=== PATIENT | male | born 1980 | race Caucasian/White ===

== ENCOUNTER 2019-08-10 05:37 | Emergency (ER) | payer OTHER, SELFPAY ==
[2019-08-10 05:38] VITALS: BP 119/67; PULSE 96; RESP 16; TEMP 36.5; O2SAT 96; BMI 29.3
--- NOTE | 2019-08-10 05:59 | CT_ITS ---
STUDY: CT ABDOMEN AND PELVIS WITHOUT CONTRAST REASON FOR EXAM: Male, 38 years old. RIGHT FLANK PAIN. SHOVELED GRAVEL YESTERDAY RADIATION DOSAGE (If Supplied By Facility): CTDIvol = ( 10.97 ) mGy, DLP = ( 567.26 ) mGycm TECHNIQUE: Transaxial 2.5 mm images were obtained from the dome of the diaphragm to the symphysis pubis without oral contrast, and without intravenous contrast. Sagittal and coronal images were reconstructed. This examination is limited for the evaluation of gastrointestinal, solid organs and vascular structures due to the lack of intravenous and oral contrast. Individualized dose optimization techniques were used for this CT. COMPARISON: None. FINDINGS: The visualized lung bases are unremarkable. The visualized portions of the heart are within normal limits. There is decreased attenuation of the liver consistent with steatosis. Normal gallbladder and extrahepatic biliary system. Normal spleen. Normal pancreas. Normal bilateral adrenal glands. Minimal right hydronephrosis and hydroureter with a 0.3 cm right UVJ calculus. Nonobstructing 2 mm right renal calculus. Normal left kidney. There is a small hiatal hernia. Normal small intestine. Normal colon. The appendix is visualized and appears normal. Normal abdominal aorta. Normal inferior vena cava. Normal retroperitoneum. Normal urinary bladder. Borderline prostate size. There is small bilateral inguinal and umbilical hernia containing adipose tissue. Obesity. Mild degenerative changes L5-S1.. CT/Abdomen/Pelvis without Cont IMPRESSION: Normal hydronephrosis right with hydroureter and a right UVJ calculus of 0.3 cm. Nonobstructing right renal calculus. Hepatic steatosis, small fat-containing umbilical and inguinal hernia, borderline prostate size and mild degenerative changes felt to be nonacute findings. Electronically Signed: Aleyda Hoover MD at 6:34 EDT , Service support ,
--- NOTE | 2019-08-10 05:59 | ED.VIS.GI ---
History of Present Illness Chief Complaint: Back Informant: Patient - Abdominal Pain/Flank Pain Onset: Hours - 4 Context: Sudden Onset - Woke him up from sleep Timing: Continuous, Waxes and wanes - Colicky Quality: Aching Location: Right Flank - Radiating into his perineum Current Severity: Moderate Maximum Severity: Severe Worsened by: Nothing. Not Worsened By: Movement Relieved by: Nothing - Nausea/Vomiting/Emesis GI Symptom: Nausea. Negative for: Vomiting - Diarrhea/Melena/Hematochezia GI Symptom: Negative for: Diarrhea, Melena, Hematochezia Associated Symptoms: Negative for: Dysuria, Frequency, Hematuria, Urgency Narrative: Patient states he awoke in the middle of the night with severe colicky pain in his right low flank radiating into his perineum. States that he was shoveling a lot of gravel yesterday, but this does not feel like a sore muscle, it is different. He has never had this before. No history of kidney stones. Denies any fevers. No history of abdominal surgeries. Past Medical History - Allergies and Home Meds Allergies/Adverse Reactions: Allergies No Known Allergies Allergy (Verified 08/10/19 05:44) Primary Care Physician: Care Physician,No Primary [Primary Care Provider] - Past Medical History: None Smoking Status: Never smoker Drugs: None Review of Systems General: Denies: Chills, Fever, Sweats Eyes: Denies: Visual changes - bilaterally, Diplopia ENT: Denies: Rhinorrhea, Sore throat Cardiovascular: Denies: Chest pain, Palpitations Respiratory: Denies: Dyspnea, Cough, Dyspnea on exertion Gastrointestinal: Reports: Abdominal pain - Lateral right flank only, Nausea. Denies: Vomiting, Diarrhea, Melena, Hematochezia Genitourinary: Denies: Dysuria, Hematuria, Frequency Musculoskeletal: Reports: Back pain. Denies: Extremity Pain Skin: Denies: Rash, Wounds Neurological: Denies: Headache, Weakness, Numbness Physical Exam Vital Signs/Narrative: Vital Signs Temp Pulse Resp BP Pulse Ox 08/10/19 05:38 97.7 F L 96 16 119/67 96 Inital Vital Signs reviewed: Yes General: Well nourished, Well developed, No Acute Distress Head: Normocephalic, Atraumatic Eyes: Perrl, EOMI ENT: Moist mucous membranes, No rhinorrhea Neck: Supple, Nontender Cardiovascular: Regular rate, Regular rhythm, No murmurs Respiratory: No distress, CTA bilaterally, Chest nontender Abdomen: Soft, Nontender, Nondistended, Normal bowel sounds Back: Normal Inspection, CVA tenderness - Right only, with no tenderness to superficial palpation of the paraspinal musculature. No rash. Extremities: Nontender, No edema Skin: Normal color, No rash, No Trauma Neurological: Alert, Oriented x3, Cranial nerves II-XII grossly intact, Normal Strength, Normal Sensation, Normal Gait Psychological: Normal affect, Normal Mood Diagnostic/Tx/Re-eval Clinical Impression(s) from Imaging Studies Abdomen/Pelvis CT 08/10/19 05:59 IMPRESSION: Normal hydronephrosis right with hydroureter and a right UVJ calculus of 0.3 cm. Nonobstructing right renal calculus. Hepatic steatosis, small fat-containing umbilical and inguinal hernia, borderline prostate size and mild degenerative changes felt to be nonacute findings. Electronically Signed: Aleyda Hoover MD at 6:34 EDT , Service support , - Medical Decision Making CT is consistent with urolithiasis and some hydronephrosis causing his pain. He feels better after Zofran and Toradol. Awaiting urine to rule out infection, if it does so, he will be sent home with prescription for expectant management and follow-up instructions, strainers. Patient is doing well and comfortable with that plan. ED Disposition - Plan for ED Patient: Disposition: Home or Assisted Living Diagnosis: Urolithiasis, Renal colic on right side Instructions: ED Renal Stone w Colic Prescriptions: Hydrocodone Bitart/Apap 5-325 [[place] 5MG-325MG] 1 tab PO Q4H PRN PRN 3 Days #15 tab PRN Reason: Pain Prescription Printed Ondansetron [Zofran Odt] 8 mg PO Q8H PRN PRN #20 tab PRN Reason: Nausea Prescription Printed Referrals: Truong Hampton MD [STAFF PHYSICIAN] - 1-2 Weeks (If not able to pass the stone and still dealing with pain; return to ER if pain or vomiting out of control, develop a fever, or inability to urinate.)
[2019-08-10] MEDS: Ondansetron 4 MG/2 ML Vial IV (06:07)
[2019-08-10] MEDS: Ketorolac 30 MG/ML Syringe IV (06:07)
[2019-08-10 07:23] LABS: Bacteria 0 SEEN /hpf (None Seen); Red Blood Cells-Urine 0 SEEN /hpf (0-5); Squamous Epithelial Cells - UA 0 SEEN /hpf (0-5); White Blood Cells 0 SEEN /hpf (0-5)
[2019-08-10 07:27] LABS: Color, Urine Yellow (Yellow); Glucose, Dipstick Normal (Normal); Ketone-Dipstick 15 mg/dl (Negative); Leukocyte Esterase-Dipstick Negative /ul (Negative); Nitrite-Dipstick Negative (Negative); Occult Blood-Urine Negative /ul (Negative); Protein-Dipstick 15 mg/dl (Negative); Urine Bilirubin Dipstick Negative (Negative); Urine Clarity Clear (Clear); Urine Urobilinogen Normal (Normal)
[2019-08-10 07:33] LABS: Amorphous Sediment 1+; Mucous, Urine 2+ /hpf (<or=2+)
[2019-08-10 07:45] VITALS: PULSE 77; RESP 16; O2SAT 98
== END 2019-08-10 07:46 | disposition home or self-care (01) ==
LOC: ED 06:51
PROVIDERS: Emergency Provider Emergency Medicine; PCP Family Medicine
DX: N13.2 Hydronephrosis with renal and ureteral calculous obstruction (principal)
CPT/HCPCS: 74176; 81001; 96374; 96375; 99282; A4216; J2405